=== PATIENT | female | born 1960 | race Caucasian/White ===

== ENCOUNTER 2017-04-07 19:18 | Emergency (ER) | payer BC ==
[2017-04-07 19:34] VITALS: BP 152/85
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
== END 2017-04-07 21:22 | disposition home or self-care (01) ==
LOC: ER 19:18
DX: S60.032A Contusion of left middle finger without damage to nail, initial encounter (principal); W22.09XA Striking against other stationary object, initial encounter; Y93.89 Activity, other specified; Z88.5 Allergy status to narcotic agent
CPT/HCPCS: 99283